=== PATIENT | female | born 1995 ===

== ENCOUNTER 2024-06-08 12:58 | Emergency (ER) | payer OTHER, SELFPAY ==
--- NOTE | 2024-06-08 13:48 | PC.NURSE ---
No answer at [id number].
--- OUTSIDE RECORDS SUMMARY | 2024-06-08 17:54 | XMS_ITS | Encounter Summary ---
Author Organization [facility] Address [address] [place] [address] Care Team Providers Care Field Sales Manager Name Role Phone Jose Armando Hobbs MD Primary Care Provider Reason for Visit * Reason Onset Date Comments Shortness of Breath 06/08/2024 Encounter Details Date Type Department Care Team ([facility] Contact Info) Description 06/08/2024 Telephone Adult Medicine [facility] [address] [place] [address] Jose Armando Hobbs MD [address] [place] [address] Shortness of Breath Social History Tobacco Use Types Packs/Day Years Used Date Smoking Tobacco: Never Smokeless Tobacco: Never Alcohol Use Standard Drinks/Week Comments No 0 (1 standard drink = 0.6 oz pur e alcohol) Sex and Gender Information Value Date Recorded Sex Assigned at Not on file Gender Identity Not on file Sexual Orientation Not on file Job Start Date Occupation Industry Not on file Not on file Not on file documented as of this encounter Progress Notes * Rody Becerra RN - 06/08/2024 3:53 PM EST Call to pt spoke to pt c/o severe pain left side of the back Uncomfortable to move rdiates to the side, causing her to feel nausea, only the left side, No problem with urination, color clear no blood Started on Thursday, at 6am pain worsen Pain is a 8/10 , There is no problem list on file for this patient. Post 6 months Pt mentiond she has a fatty liver No current outpatient medications on file. No current facility-administered medications for this visit. Ust antibiotic amoxicillin 500 mg and ibu 200 mg one tab, q 6 hrs for pain d/t dental work, She has been pushing fluids, No nausea at this time pushing fluids, Pt triaged to the er for evaluation Pt not sure of going, will try ibu for the pain Pt made aware if no improvement or worsening pain to go to the er, Pt agreed * Kassandra Navarro - 06/08/2024 3:43 PM EST Patient is returning call. * Sameer Chavez RN - 06/08/2024 2:53 PM EST Called pt left vm to return call * Rafaela Hogan - 06/08/2024 2:17 PM EST Patient call requires triage: Symptoms patient is presenting: Left side back pain, dizzy, lightheaded, nausea, feels abnormally hot to the touch, painful to the touch, shortness of breath How long has patient had these symptoms?: Yesterday For ALL patients calling to schedule any appointment (routine, sick visit, follow up, consult, etc.) in the outpatient setting please ask the following questions: Do you have fever of higher than 101, sore throat with difficulty swallowing or severe shortness ofbreath? yes If YES to any of these above symptoms, send a message to triage and do not book. Red dot. If no, an audio or video visit should be booked. Have you had close contact with someone with Coronavirus in the last 14 days? no Have you traveled abroad? no Have you traveled recently to another state outside of [place], [place], [place], [place], [place], [place], [place]? no o If yes, did you quarantine for 14 days or have a negative covid test? no If yes to any of the above, patient is not to be scheduled in office until after 14 day quarantine or negative covid test. If pain or injury related was it due to an accident at work or from a motor vehicle accident? If yes, date of accident/Injury: No If yes, gather 3rd democrat insurance information Third Democrat Information: not applicable PCP: Jose Armando Hobbs MD Payor: Clip PLAN / Plan: [employer] MEDICAID / Product Type: *No Product type* / documented in this encounter Plan of Treatment Upcoming Encounters Date Type Department Care Team (Late st Contact Info) Description 06/24/2024 8:00 AM EST Office Visit Adult Medicine [facility] [address] [place] [address] Jose Armando Hobbs MD [address] [place] [address] documented as of this encounter Visit Diagnoses Not on filedocumented in this encounter Care Teams Field Sales Manager Relationship Specialty Start Date End Date Jose Armando Hobbs MD [address] [place] [address] PCP - General 11/24/23 documented as of this encounter
--- OUTSIDE RECORDS SUMMARY | 2024-06-08 17:54 | XMS_ITS | Clinical Summary ---
Author Organization [facility] Address [address] [place] [address] Care Team Providers Care Welder Setter Resistance Machine Name Role Phone Unavailable Primary Care Provider Unavailabl e Medications No known medications Social History Tobacco Use Types Packs/Day Years Used Date Smoking Tobacco: Never Assessed Sex and Gender Information Value Date Recorded Sex Assigned at Female 01/25/2024 1:08 PM EDT Gender Identity Not on file Sexual Orientation Not on file Job Start Date Occupation Industry Not on file Not on file Not on file Plan of Treatment Health Maintenance Due Date Last Done Comments Hepatitis C Screening 1995 COVID-19 Vaccine (#1) 04/02/1996 Depression Screening 2007 Preventative Health Evaluation 09/30/2013 Cervical Cancer Screening (Pap Smear) 09/30/2016 Influenza Vaccine (#1) 2024 DTap / Tdap / Td (8 - Td or Tdap) 12/18/2026 12/18/2016, 11/19/2007, 02/26/2000, Additional history exists Hepatitis B Vaccines Completed 09/01/1996, 09/01/1996, 02/08/1996, Additional history exists Pneumococcal Vaccine Aged Out No long er eligible based on patient's age to complete this topic RSV Ped < 20 months Aged Out No longe r eligible based on patient's age to complete this topic
--- OUTSIDE RECORDS SUMMARY | 2024-06-08 17:54 | XMS_ITS | Clinical Summary ---
Author Organization [address] [facility] Address [address] [place] [address] Phone Care Team Providers Care Family Practice Medical Doctor Name Role Phone Jose Armando Hobbs MD Primary Care Provider Encounters Date Type Department Care Team Description 06/08/2024 Telephone Adult [address] [address] Jose Armando Hobbs MD Shortness of Breath from Last 3 Months Surgical History Surgery Date Site/Laterality Comments UPPER GASTROINTESTINAL ENDOSCOPY 08/07/2020 PROCEDURE: UPPER GI ENDOSCOPY/EXAM; COMMENT: no abnormalities noted, biopsy pending Medical History Medical History Date Comments Childhood asthma DX:Childhood as thma Depression 12/15/2018 DX:Depression Anemia of 03/23/2015 DX:Anemia of ; COMMENT: Fe letter sent Dyspepsia 12/15/2018 DX:Dyspepsia Postprandial epigastric pain DX: Postprandial epigastric pain Abdominal bloating DX:Abdominal bloating Constipation DX:Constipation Family History Medical History Relation Name Comments Other: irritable bowel syndrome Father Diabetes Maternal Grandmother Hypertension Maternal Grandmother Diabetes Mother Hypertension Mother Thyroid disease Mother Breast cancer Neg Hx Cancer of Small Bowel Neg Hx Colon cancer Neg Hx Kidney cancer Neg Hx Ovarian cancer Neg Hx Pancreatic cancer Neg Hx Uterine cancer Neg Hx Relation Name Status Comments Father Maternal Grandmother Mother Social History Tobacco Use Types Packs/Day Years [...] file Not on file Not on file Obstetrics History Last Filed Vital Signs Vital Sign Reading Time Taken Comments Blood Pressure 115/80 02/26/2024 2:03 PM EDT Pulse 83 02/26/2024 2:03 PM EDT Temperature - - Respiratory Rate - - Oxygen Saturation - - Inhaled Oxygen Concentration - - Weight 78.5 kg (173 lb) 02/26/2024 2:03 PM EDT Height 157.5 cm (5' 2 ) 02/26/2024 2:03 PM EDT Body Mass Index 31.64 02/26/2024 2:03 PM EDT Plan of Treatment Upcoming Encounters Date Type Department Care Team (Late st Contact Info) Description 06/24/2024 8:00 AM EST Office Visit Adult Medicine [facility] [address] [place] [address] Jose Armando Hobbs MD [address] [place] [address] Health Maintenance Due Date Last Done Comments Pneumococcal Vaccine: Pediatrics (0 to 5 Years) and At-Risk Patients (6 to 64 Years) (1 of 2 - PCV) 09/30/2001 Hepatitis A Vaccines (1 of 2 - Risk 2-dose series) 09/30/2014 Cervical Cancer Screening: Pap Smear 09/30/2016 Depression Screening 04/13/2022 HIV Screening 04/13/2022 Hepatitis C Screening 04/13/2022 Social Influencers of Health Screening 04/13/2022 COVID-19 Vaccine ( - season) 2024 Influenza Vaccine (#1) 2024 DTaP,Tdap,and Td Vaccines (8 - Td or Tdap) 12/18/2026 12/18/2016, 11/19/2007, 02/26/2000, Additional history exists Cholesterol Screening (Lipid Panel) 01/13/2029 01/14/2024 Hepatitis B Vaccines Completed 09/01/1996, 02/08/1996, 1995 Varicella Vaccines Aged Out 02/06/1997 No longer eligible based on patient's age to complete this topic HIB Vaccines Completed 07/21/1997, 01/10, 09/01/1996, Additional history exists IPV Vaccines Completed 02/26/2000, 07/09, 02/06/1997, Additional history exists MMR Vaccines Completed 06/05/2000, 02/06/1997 Meningococcal ACWY Vaccine Aged Out 11/19/2007 N o longer eligible based on patient's age to complete this topic HPV Vaccines Completed 06/16/2011, 08/2010, 02/23/2009 RSV Immunization Patients Under 20 months Aged Out No longer eligible based on patient's age to complete this topic Care Teams Family Practice Medical Doctor Relationship Specialty Start Date End Date Jose Armando Hobbs MD [address] [place] [address] PCP - General 11/24/23
== END 2024-06-08 16:52 | disposition left against medical advice (07) ==
LOC: HO.ED 16:46
PROVIDERS: Emergency Provider Emergency Medicine
DX: R42 Dizziness and giddiness (principal); M54.9 Dorsalgia, unspecified; Z53.21 Procedure and treatment not carried out due to patient leaving prior to being seen by health care provider